=== PATIENT | female | born 1980 | race American Indian/Alaskan Native ===

== ENCOUNTER 2017-11-01 12:51 | Emergency (ER) | payer MEDICAID ==
--- NOTE | 2017-11-01 15:10 | Emergency Department Report ---
ED Lower Extremity HPI - General Chief Complaint: Extremity Injury, Lower Stated Complaint: RIGHT LEG SWOLLEN Time Seen by Provider: 11/01/17 15:10 Source: patient Mode of arrival: Ambulatory Limitations: No Limitations - History of Present Illness Initial Comments: This is a 37-year-old female nontoxic, well nourished in appearance, no acute signs of distress presents to the ED with c/o of right knee pain and swelling 1 day. Patient stated that she also feels a knot behind her knee. Patient stated she has been walking a lot. Patient stated she feels like her knee locks up on her at times. Patient denies any decreased range of motion or joint redness. Patient denies any decreased ROM. Patient denies any calf pain or tenderness. Patient denies any recent travels, long car rides, or recent hospital. Patient denies any numbness, tingling, chest pain, shortness of breathe, abdominal pain, back pain, or neck pain. Patient denies any allergies or PMH. MD Complaint: knee injury -: days(s) (1) Injury: Knee: Right Severity: mild Severity scale (0 -10): 8 Improves With: nothing Worsens With: nothing Associated Symptoms: swelling, able to partially bear weight, ambulatory. denies: snap/pop sensation, numbness, tingling, unable to bear weight - Related Data Previous Rx's Medication Instructions Recorded Last Taken Type Ibuprofen [Motrin] 600 mg PO Q8H PRN #30 tablet 11/01/17 Unknown Rx Prednisone [predniSONE 10 mg 10 mg PO .TAPER #1 tab.ds.pk 11/01/17 Unknown Rx (6-Day Pack, 21 Tabs)] Allergies Allergy/AdvReac Type Severity Reaction Status Date / Time No Known Allergies Allergy Unverified 11/01/17 14:13 ED Review of Systems ROS: Stated complaint: RIGHT LEG SWOLLEN Other details as noted in HPI Constitutional: denies: chills, fever Eyes: denies: eye pain, eye discharge, vision change ENT: denies: ear pain, throat pain Respiratory: denies: cough, shortness of breath, wheezing Cardiovascular: denies: chest pain, palpitations Endocrine: no symptoms reported Gastrointestinal: denies: abdominal pain, nausea, diarrhea Genitourinary: denies: urgency, dysuria, discharge Musculoskeletal: arthralgia. denies: back pain, joint swelling Skin: denies: rash, lesions Neurological: denies: headache, weakness, paresthesias Psychiatric: denies: anxiety, depression Hematological/Lymphatic: denies: easy bleeding, easy bruising ED Past Medical Hx - Past Medical History Previous Medical History?: No - Surgical History Past Surgical History?: No - Social History Smoking Status: Never Smoker - Medications Home Medications: Home Medications Medication Instructions Recorded Confirmed Last Taken Type Ibuprofen [Motrin] 600 mg PO Q8H PRN #30 tablet 11/01/17 Unknown Rx Prednisone [predniSONE 10 mg 10 mg PO .TAPER #1 tab.ds.pk 11/01/17 Unknown Rx (6-Day Pack, 21 Tabs)] ED Physical Exam - General Limitations: No Limitations General appearance: alert, in no apparent distress - Head Head exam: Present: atraumatic, normocephalic - Eye Eye exam: Present: normal appearance Pupils: Present: normal accommodation - ENT ENT exam: Present: normal exam, mucous membranes moist - Neck Neck exam: Present: normal inspection, full ROM. Absent: tenderness, meningismus - Respiratory Respiratory exam: Present: normal lung sounds bilaterally. Absent: respiratory distress, wheezes, rales, rhonchi, stridor - Cardiovascular Cardiovascular Exam: Present: regular rate, normal rhythm, normal heart sounds. Absent: bradycardia, tachycardia, irregular rhythm, systolic murmur, diastolic murmur, rubs, gallop - GI/Abdominal GI/Abdominal exam: Present: soft, normal bowel sounds - Rectal Rectal exam: Present: deferred - Extremities Exam Extremities exam: Present: normal inspection, full ROM, tenderness (anterior knee), normal capillary refill. Absent: pedal edema, joint swelling, calf tenderness - Expanded Lower Extremity Exam Right Hip exam: Present: normal inspection, full ROM Upper Leg exam: Present: normal inspection, full ROM Knee exam: Present: normal inspection, full ROM, tenderness (anterior and posterior knee), full knee extension. Absent: swelling, abrasion, laceration, ecchymosis, deformity, crepidus, dislocation, erythema, effusion, pain w/ pronation/supination, posterior draw sign, pain/laxity with valgus, pain/laxity with varus Lower Leg exam: Present: normal inspection, full ROM. Absent: tenderness, swelling, abrasion, laceration, ecchymosis, deformity, crepidus, dislocation, erythema, palpable cord, Joby's sign Ankle exam: Present: normal inspection, full ROM. Absent: tenderness, swelling , abrasion, laceration, ecchymosis, deformity, crepidus, dislocation, erythema, anterior draw sign Foot/Toe exam: Present: normal inspection, full ROM Neuro vascular tendon exam: Present: no vascular compromise. Absent: pulse deficit, abnormal cap refill, motor deficit, sensory deficit, tendon deficit, extremity cold to touch, pallor, abnormal 2-point discrimination, decreased fine /light touch, foot drop, peroneal nerve deficit, significant pain with passive ROM of distal joint Gait: Positive: observed and limited by pain - Back Exam Back exam: Present: normal inspection, full ROM - Neurological Exam Neurological exam: Present: alert, oriented X3, normal gait - Psychiatric Psychiatric exam: Present: normal affect, normal mood - Skin Skin exam: Present: warm, dry, intact, normal color. Absent: rash - Other Other exam information: Knee is not warm to touch. Normal temp and no redness. ED Course Vital Signs 11/01/17 14:11 Temperature 98.7 F Pulse Rate 72 Respiratory 16 Rate Blood Pressure 140/95 O2 Sat by Pulse 100 Oximetry - Reevaluation(s) Reevaluation #1: 11/01/17 16:20 Patient is speaking in full sentences with no signs of distress noted. ED Lower Extremity MDM - Medical Decision Making This is a 37-year-old female that presents with right knee strain. Patient is stable and was examined by me. Doppler venous of right lower extermity obtained and negative for DVT/SVT. Xray obtained and dictated by the radiologist. Patient is notified of the x-ray report with no questions noted. Patient did receive Motrin in the ED and stated symptoms have resolved and subsided. There is no signs or symptoms of bursitis. No joint swelling or redness. Not warm to touch. No signs of abscess or cellultitis noted. Patient is discharged with Motrin. She was instructed to rice therapy. Patient received a knee immobilizer. Patient was referred to Follow-up with a orthopedic doctor in 3-5 days or if symptoms worsen and continue return to emergency room as soon as possible. At time of discharge, the patient does not seem toxic or ill in appearance. No acute signs of distress noted. Patient agrees to discharge treatment plan of care. No further questions noted by the patient. Critical care attestation.: If time is entered above; I have spent that time in minutes in the direct care of this critically ill patient, excluding procedure time. ED Disposition Clinical Impression: Strain of right knee Qualifiers: Encounter type: initial encounter Qualified Code(s): S86.911A - Strain of unspecified muscle(s) and tendon(s) at lower leg level, right leg, initial encounter Disposition: TO HOME OR SELFCARE Is pt being admited?: No Does the pt Need Aspirin: No Condition: Stable Instructions: Ibuprofen (By mouth), Knee Pain (ED), RICE Therapy (ED), Knee Immobilizer (ED) Additional Instructions: Follow-up with a orthopedic doctor in 3-5 days or if symptoms worsen and continue return to emergency room as soon as possible. Prescriptions: Ibuprofen [Motrin] 600 mg PO Q8H PRN #30 tablet PRN Reason: Pain Prednisone [predniSONE 10 mg (6-Day Pack, 21 Tabs)] 10 mg PO .TAPER #1 tab.ds.pk Referrals: CIRILO OROZCO [Primary Care Provider] - 3-5 Days HARI SALAZAR MD [Staff Physician] - 3-5 Days PRIMARY CAREMD [Referring] - 3-5 Days [facility] [Outside] - 3-5 Days [facility] [Outside] - 3-5 Days Forms: Work/School Release Form(ED)
[2017-11-01] MEDS ORDERED: MOTRIN PO ONE (15:12)
--- NOTE | 2017-11-01 17:38 | XRay Report ---
FINAL REPORT EXAM: XR KNEE 3V RT HISTORY: right knee pain TECHNIQUE: 3 views of the right knee PRIORS: None. FINDINGS: Moderate nonspecific soft tissue prominence superior to the patella on the lateral view may reflect moderate knee joint effusion. There is no radiographic evidence of definite acute fracture or dislocation. No evidence of osseous lesion. Joint spaces are maintained. There is no evidence of significant degenerative arthrosis. IMPRESSION: No acute skeletal pathology Suggestion of moderate joint effusion
[2017-11-01 18:14] VITALS: BP 128/90
== END 2017-11-01 18:13 | disposition home or self-care (01) ==
LOC: ED 12:51
DX: S86.911A Strain of unspecified muscle(s) and tendon(s) at lower leg level, right leg, initial encounter (principal); X58.XXXA Exposure to other specified factors, initial encounter; Y93.89 Activity, other specified; Y92.89 Other specified places as the place of occurrence of the external cause; Y99.8 Other external cause status

== ENCOUNTER 2018-02-25 02:16 | Emergency (ER) | payer MEDICAID ==
[2018-02-25 05:24] LABS: Basophils # (Auto) 0.1 K/mm3 (0.0-0.1); Basophils % (Auto) 1.1 % (0.0-1.8); Eosinophils # (Auto) 0.3 K/mm3 (0.0-0.4); Eosinophils % (Auto) 3.7 % (0.0-4.3); Hematocrit 35.6 % (30.3-42.9); Hemoglobin 11.5 gm/dl (10.1-14.3); Lymphocytes # (Auto) 2.2 K/mm3 (1.2-5.4); Lymphocytes % (Auto) 31.3 % (13.4-35.0); Mean Corpuscular HGB Conc 32 % (30-34); Mean Corpuscular Hemoglobin 28 pg (28-32); Mean Corpuscular Volume 87 fl (79-97); Monocytes # (Auto) 0.6 K/mm3 (0.0-0.8); Platelet Count 141 K/mm3 (140-440); Red Blood Count 4.07 M/mm3 (3.65-5.03); Red Cell Distribution Width 19.1 % (13.2-15.2)
[2018-02-25 05:35] LABS: BUN/Creatinine Ratio 14; Blood Urea Nitrogen 7 mg/dL (7-17); Hemolysis Index 1; INR 0.91 (0.87-1.13)
[2018-02-25 05:36] LABS: Partial Thromboplastin Time 28.6 Sec. (24.2-36.6)
[2018-02-25] MEDS ORDERED: TYLENOL PO ONE (06:33)
--- NOTE | 2018-02-25 06:34 | Emergency Department Report ---
ED General Adult HPI - General Chief complaint: Extremity Injury, Lower Stated complaint: LEFT LEG SWELLING AND PAIN. Time Seen by Provider: 02/25/18 06:23 Source: patient, RN notes reviewed Mode of arrival: Ambulatory Limitations: No Limitations - History of Present Illness Initial comments: This is a 37-year-old female who is unknown to this provider previously. She is 10, para 7, including twin gestation, last menstrual period is December 20 , and is currently following with [facility]. She is going to see Dr. Mcmillan tomorrow. She has an outpatient referral to perinatology. She denies chronic medical conditions. She presents to the ER with a complaint of traumatic left calf pain. She reports doing a lot of walking over the past couple of weeks. She reports being seen at another hospital for right sided plantar foot pain, was presumptively diagnosed with plantar fasciitis, and reports that she has been favoring the contralateral leg. Since then she's been having left calf pain and swelling. This is been going on for about 2 weeks. The pain is sharp, increases with palpation, does not radiate anywhere, increases with palpation and decreases with rest. There is no headache, neck pain, chest pain, abdominal pain, shortness of breath, and she denies urinary symptoms. She further indicates that a side effect from , she denies DVT, pulmonary embolus risk factors. She also indicates that she's had negative outpatient ultrasound at other facilities. -: Gradual Location: left, lower extremity Severity scale (0 -10): 10 Quality: aching Consistency: intermittent Improves with: rest Worsens with: movement Associated Symptoms: denies: confusion, chest pain, cough, diaphoresis, fever/ chills, headaches, loss of appetite, malaise, nausea/vomiting, rash, seizure, shortness of breath, syncope, weakness - Related Data Previous Rx's Medication Instructions Recorded Last Taken Type Ibuprofen [Motrin] 600 mg PO Q8H PRN #30 tablet 11/01/17 Unknown Rx Prednisone [predniSONE 10 mg 10 mg PO .TAPER #1 tab.ds.pk 11/01/17 Unknown Rx (6-Day Pack, 21 Tabs)] Acetaminophen [Tylenol Arthritis] 650 mg PO Q6HR PRN #30 tablet.er 02/25/18 Unknown Rx Enoxaparin [Lovenox] 120 mg SQ Q12HR #60 syringe 02/25/18 Unknown Rx Vit Calc,Iron,Folic 1 each PO QDAY #30 tablet 02/25/18 Unknown Rx [ Vitamins] Allergies Allergy/AdvReac Type Severity Reaction Status Date / Time No Known Allergies Allergy Unverified 11/01/17 14:13 ED Review of Systems ROS: Stated complaint: LEFT LEG SWELLING AND PAIN. Other details as noted in HPI Comment: All other systems reviewed and negative ED Past Medical Hx - Past Medical History Previous Medical History?: No Additional medical history: DVT L leg - Surgical History Past Surgical History?: Yes Additional Surgical History: X 2, Fractured right leg. - Social History Smoking Status: Current Every Day Smoker Substance Use Type: None - Medications Home Medications: Home Medications Medication Instructions Recorded Confirmed Last Taken Type Ibuprofen [Motrin] 600 mg PO Q8H PRN #30 tablet 11/01/17 Unknown Rx Prednisone [predniSONE 10 mg 10 mg PO .TAPER #1 tab.ds.pk 11/01/17 Unknown Rx (6-Day Pack, 21 Tabs)] Acetaminophen [Tylenol Arthritis] 650 mg PO Q6HR PRN #30 tablet.er 02/25/18 Unknown Rx Enoxaparin [Lovenox] 120 mg SQ Q12HR #60 syringe 02/25/18 Unknown Rx Vit Calc,Iron,Folic 1 each PO QDAY #30 tablet 02/25/18 Unknown Rx [ Vitamins] ED Physical Exam - General Limitations: No Limitations General appearance: alert, in no apparent distress, obese - Head Head exam: Present: atraumatic, normocephalic - Eye Eye exam: Present: normal appearance, EOMI. Absent: nystagmus - ENT ENT exam: Present: normal exam, normal orophraynx, mucous membranes moist, normal external ear exam - Neck Neck exam: Present: normal inspection, full ROM - Respiratory Respiratory exam: Present: normal lung sounds bilaterally. Absent: respiratory distress - Cardiovascular Cardiovascular Exam: Present: regular rate, normal rhythm, normal heart sounds. Absent: bradycardia, tachycardia, irregular rhythm, systolic murmur, diastolic murmur, rubs, gallop - GI/Abdominal GI/Abdominal exam: Present: soft. Absent: distended, tenderness, guarding, rebound, rigid, pulsatile mass - Extremities Exam Extremities exam: Present: normal inspection (there is right-sided reproducible plantar foot tenderness. There is left-sided reproducible calf Tenderness. There is no palpable cord. There is a negative Homans sign.), full ROM, tenderness, normal capillary refill, calf tenderness, other (2+ pulses noted in the bilateral upper, lower extremities. Compartments soft. No long bony tenderness. The pelvis is stable.) - Back Exam Back exam: Present: normal inspection, full ROM. Absent: tenderness, CVA tenderness (R), CVA tenderness (L), muscle spasm, paraspinal tenderness - Neurological Exam Neurological exam: Present: alert, oriented X3, CN II-XII intact, other ( Extraocular movements intact. Tongue midline. No facial droop. Facial sensation intact to light touch in the V1, V2, V3 distribution bilaterally. 5 and 5 strength in 4 extremities.. Sensation is intact to light touch in 4 extremities.). Absent: motor sensory deficit - Psychiatric Psychiatric exam: Present: normal affect, normal mood - Skin Skin exam: Present: warm, dry, intact, normal color. Absent: rash ED Course Vital Signs 02/25/18 02/25/18 02/25/18 04:51 06:08 07:24 Temperature 98.2 F 98.3 F Pulse Rate 93 H 76 Respiratory 16 16 16 Rate Blood Pressure 143/80 Blood Pressure 126/73 [Left] O2 Sat by Pulse 100 100 Oximetry 02/25/18 07:26 Temperature 98.3 F Pulse Rate 82 Respiratory 16 Rate Blood Pressure Blood Pressure 120/73 [Left] O2 Sat by Pulse 100 Oximetry - Reevaluation(s) Reevaluation #1: 02/25/18 08:09 Differential diagnosis, including but not limited to: DVT, muscular strain, plantar fasciitis Assessment and plan: 37-year-old female with reproducible muscular pain, unlikely to be DVT. My bedside ultrasound demonstrates appropriate pulses in the lower extremities, and pulses are also palpable on my physical examination. Compartments are soft, there is no palpable cord, there is no pain with passive range of motion of the great toes, and there is no obvious stigmata of cellulitis. During the lower extremity examination, I am chaperoned by nurse SEDA DSOUZA. Patient is treated appropriately with acetaminophen for her pain, an ultrasound of the lower extremities is pending to exclude thromboembolic disease. My bedside ultrasound also demonstrates an intrauterine , with spontaneous heart rate noted. 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 Reevaluation #2: 02/25/18 09:58 Ultrasound has demonstrated bilateral lower extremity DVT. Case is discussed with vascular surgery litigation manager, Dr. Tristan Jain. The physical exam findings and ultrasound findings are relayed to the vascular surgeon. He does not recommend any invasive intervention at this time. He recommends Lovenox therapy and outpatient follow-up next week. This is discussed with the patient. She endorses that she has self-administered Lovenox in the past. The risks, benefits of Lovenox therapy, including bleeding, and potential life- threatening hemorrhage were discussed with the patient who verbalized understanding. She indicates no contraindications to systemic anticoagulation at this time. ED Medical Decision Making - Lab Data Result diagrams: 02/25/18 05:05 02/25/18 05:05 Vital Signs 02/25/18 02/25/18 02/25/18 04:51 06:08 07:24 Temperature 98.2 F 98.3 F Pulse Rate 93 H 76 Respiratory 16 16 16 Rate Blood Pressure 143/80 Blood Pressure 126/73 [Left] O2 Sat by Pulse 100 100 Oximetry 02/25/18 07:26 Temperature 98.3 F Pulse Rate 82 Respiratory 16 Rate Blood Pressure Blood Pressure 120/73 [Left] O2 Sat by Pulse 100 Oximetry Lab Results 02/25/18 02/25/18 02/25/18 Range/Units 05:05 05:05 05:05 WBC 7.0 (4.5-11.0) K/mm3 RBC 4.07 (3.65-5.03) M/mm3 Hgb 11.5 (10.1-14.3) gm/dl Hct 35.6 (30.3-42.9) % MCV 87 (79-97) fl MCH 28 (28-32) pg MCHC 32 (30-34) % RDW 19.1 H (13.2-15.2) % Plt Count 141 (140-440) K/mm3 Lymph % (Auto) 31.3 (13.4-35.0) % [place] % (Auto) 9.0 H (0.0-7.3) % Eos % (Auto) 3.7 (0.0-4.3) % Baso % (Auto) 1.1 (0.0-1.8) % Lymph # 2.2 (1.2-5.4) K/mm3 [place] # 0.6 (0.0-0.8) K/mm3 Eos # 0.3 (0.0-0.4) K/mm3 Baso # 0.1 (0.0-0.1) K/mm3 Seg Neutrophils % 54.9 (40.0-70.0) % Seg Neutrophils # 3.9 (1.8-7.7) K/mm3 PT 12.7 (12.2-14.9) Sec. INR 0.91 (0.87-1.13) APTT 28.6 (24.2-36.6) Sec. Sodium 137 (137-145) mmol/L Potassium 4.1 (3.6-5.0) mmol/L Chloride 101.2 (98-107) mmol/L Carbon Dioxide 22 (22-30) mmol/L Anion Gap 18 mmol/L BUN 7 (7-17) mg/dL Creatinine 0.5 L (0.7-1.2) mg/dL Estimated GFR > 60 ml/min BUN/Creatinine Ratio 14 % Glucose 87 (65-100) mg/dL Calcium 10.0 (8.4-10.2) mg/dL Total Creatine Kinase (30-135) units/L HCG, Quant (0-4) mIU/mL 02/25/18 02/25/18 Range/Units 05:05 05:05 WBC (4.5-11.0) K/mm3 RBC (3.65-5.03) M/mm3 Hgb (10.1-14.3) gm/dl Hct (30.3-42.9) % MCV (79-97) fl MCH (28-32) pg MCHC (30-34) % RDW (13.2-15.2) % Plt Count (140-440) K/mm3 Lymph % (Auto) (13.4-35.0) % [place] % (Auto) (0.0-7.3) % Eos % (Auto) (0.0-4.3) % Baso % (Auto) (0.0-1.8) % Lymph # (1.2-5.4) K/mm3 [place] # (0.0-0.8) K/mm3 Eos # (0.0-0.4) K/mm3 Baso # (0.0-0.1) K/mm3 Seg Neutrophils % (40.0-70.0) % Seg Neutrophils # (1.8-7.7) K/mm3 PT (12.2-14.9) Sec. INR (0.87-1.13) APTT (24.2-36.6) Sec. Sodium (137-145) mmol/L Potassium (3.6-5.0) mmol/L Chloride (98-107) mmol/L Carbon Dioxide (22-30) mmol/L Anion Gap mmol/L BUN (7-17) mg/dL Creatinine (0.7-1.2) mg/dL Estimated GFR ml/min BUN/Creatinine Ratio % Glucose (65-100) mg/dL Calcium (8.4-10.2) mg/dL Total Creatine Kinase 119 (30-135) units/L HCG, Quant 89200 H (0-4) mIU/mL - Radiology Data Radiology results: report reviewed, image reviewed [facility] CASANDRA CHILDS Female : 1980 [employer]# [id number] 02/25/18 09:18 - Radiology Dept. Note by LISBET FOWLER [facility] Num: [id number] : 1980 Patient Age: 37 BLE VENOUS DUPLEX COMPLETED. VAS LAB PRELIMINARY REPORT; ACUTE DVT NOTED IN RLE DST SFV, POP V , PTV, PERONEAL V'S. ACUTE DVT NOTED ALSO IN LLE. SFV, POP V, PTV AND PERONEAL V'S. PHYSICIANS REPORT TO FOLLOW...(RSK) Initialized on 02/25/18 09:18 - END OF NOTE Critical care attestation.: If time is entered above; I have spent that time in minutes in the direct care of this critically ill patient, excluding procedure time. ED Disposition Clinical Impression: DVT (deep vein thrombosis) in Disposition: DC-01 TO HOME OR SELFCARE Is pt being admited?: No Does the pt Need Aspirin: No Condition: Stable Instructions: Deep Venous Thrombosis (ED) Additional Instructions: Take the acetaminophen as needed for pain. Take the Lovenox therapy as directed twice daily for blood clots in the lower extremities. Follow up as soon as possible with an [facility] doctor to initiate and continue outpatient care. Follow up with [facility], or any local vascular surgeon within the next 7-10 days. Return to the ER right away with new pain, worsened pain, migration of pain, vomiting blood, defecating blood, chest pain, shortness of breath, lightheadedness, loss of consciousness. Referrals: PRIMARY CARE, [Primary Care Provider] - 3-5 Days AMISHA MCMILLAN MD [Staff Physician] - 3-5 Days [facility] [Provider Group] - 3-5 Days [facility] [Provider Group] - 3-5 Days [facility] [Provider Group] - 3-5 Days
[2018-02-25] MEDS ORDERED: LOVENOX SUB-Q STA (09:45)
[2018-02-25 10:53] VITALS: BP 126/72
[2018-02-25] MEDS ORDERED: LOVENOX SUB-Q ONE (11:00)
--- NOTE | 2018-02-26 11:35 | Vascular Lab Report ---
LOWER EXTREMITY VENOUS DUPLEX: REASON FOR EXAM: Pain and swelling of the lower extremities. COMMENTS ON THE RIGHT: Acute, partially occluding thrombus is seen in the distal superficial femoral vein, popliteal vein, and the posterior tibial and peroneal veins. The remaining veins visualized are freely compressible without evidence of internal echogenicity. Spontaneous and phasic flow is present proximally. COMMENTS ON THE LEFT: Acute occlusive deep venous thrombosis is seen involving the entire superficial femoral vein, popliteal vein, and proximal posterior tibial and peroneal veins. The remaining veins visualized are freely compressible without evidence of internal echogenicity. Spontaneous and phasic flow is diminished proximally. IMPRESSION: Extensive acute deep venous thrombosis in the left lower extremity. Partially occluding acute thrombus in the distal superficial femoral, popliteal and proximal tibial veins of the right lower extremity.
== END 2018-02-25 10:53 | disposition home or self-care (01) ==
LOC: ED 02:16
DX: O22.31 Deep phlebothrombosis in pregnancy, first trimester (principal); O99.331 Smoking (tobacco) complicating pregnancy, first trimester; F17.200 Nicotine dependence, unspecified, uncomplicated; Z3A.10 10 weeks gestation of pregnancy
CPT/HCPCS: 36415; 80048; 82550; 84702; 85025; 85610; 85730; 93970; 96372; 99284; J1650

== ENCOUNTER 2018-08-28 09:54 | Inpatient (IN) | payer MEDICAID ==
[2018-08-28] MEDS ORDERED: LACTATED RINGERS 2,000 ML ONE (10:45)
[2018-08-28] MEDS ORDERED: ANCEF/STERILE WATER 2 GM/20 ML 2 GM/20 ML SYRINGE IV NR (11:00)
[2018-08-28] MEDS ORDERED: PITOCin/NS 20 UNIT/1000ML DRIP 20 UNITS/1,000 ML BAG IV SCH ×2 (11:00→14:00)
--- NOTE | 2018-08-28 11:03 | History and Physical Report ---
History of Present Illness Date of examination: 08/28/18 Date of admission: 08/28/18 10:13 Chief complaint: SIUP at 35 weeks and 6 days gestation in active labor and SROM, breech presentation, previous C/section. History of present illness: Patient is a 38 year old , LMP 12/20/17, EDC 09/26/18 at 35 weeks and 6 days gestation who presented to triage complaining of fluid leakage per vagina which started an hour ago and irregular contractions. She denies any bleeding. She reports good movement. She is a grand multiparous with a history of 3 placental abruptions, first was a C/section for IUFD at 41 weeks, 7 VBACs, one repeat C/section, then one with another IUFD. GCT was elevated but she refused 3-hr GTT She has a history of left leg DVT and has been on lovenox, dose unknown as per patient, "I just get the seringe and inject myself every night with whatever dose of lovenox that is there". She smokes cigarette and marijuana dailly. 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 History: herpes Family/Genetic History: none Social history: smoking, other (marijuana) - Obstetrical History Expected Date of Delivery: 09/26/18 Actual Gestation: 35 Week(s) 6 Day(s) : 14 Para: 8 Hx # Term Pregnancies: 3 Number of Pregnancies: 6 Spontaneous Abortions: 3 Number of Living Children: 7 Medications and Allergies Allergies Allergy/AdvReac Type Severity Reaction Status Date / Time Latex, Natural Rubber Allergy Itching Verified 08/28/18 10:32 Home Medications Medication Instructions Recorded Confirmed Last Taken Type Ibuprofen [Motrin] 600 mg PO Q8H PRN #30 tablet 11/01/17 Unknown Rx Prednisone [predniSONE 10 mg 10 mg PO .TAPER #1 tab.ds.pk 11/01/17 Unknown Rx (6-Day Pack, 21 Tabs)] Acetaminophen [Tylenol Arthritis] 650 mg PO Q6HR PRN #30 tablet.er 02/25/18 Unknown Rx Enoxaparin [Lovenox] 120 mg SQ Q12HR #60 syringe 02/25/18 Unknown Rx Vit Calc,Iron,Folic 1 each PO QDAY #30 tablet 08/06/18 Unknown Rx [ Vitamins] Active Meds: Active Medications Citric Acid/Sodium Citrate (Bicitra) 30 ml PO ONCE ONE Stop: 08/28/18 10:47 Famotidine (Pepcid) 20 mg IV ONCE ONE Stop: 08/28/18 10:47 Cefazolin Sodium (Ancef/Sterile Water 2 Gm/20 Ml) 2 gm in 20 mls @ 80 mls/hr IV PREOP NR; Protocol Lactated Ringer's (Lactated Ringers) 1,000 mls @ 2,250 mls/hr IV PREOP DEEPIKA Stop: 08/29/18 11:27 Oxytocin/Sodium Chloride (Pitocin/Ns 20 Unit/1000ml Drip) 20 units in 1,000 mls @ 0 mls/hr IV TITR DEEPIKA Metoclopramide HCl (Reglan) 10 mg IV ONCE ONE Stop: 08/28/18 10:47 - Physical Exam Cardiovascular: Normal S1, Normal S2 Lungs: Positive: Clear to auscultation Vulva: both: normal Adnexa: both: normal Deep Tendon Reflex Grade: Normal +2 - Obstetrical FHR: category 1 Uterine Contraction Monitor Mode: External Cervical Dilatation: 3 Cervical Effacement Percentage: 70 station: -2 Uterine Contraction Pattern: Irregular Uterine Contraction Intensity: Moderate Results Result Diagrams: 08/28/18 10:42 All other labs normal. Assessment and Plan - Patient Problems (1) 35 weeks gestation of Current Visit: Yes Status: Acute (2) Breech presentation Current Visit: Yes Status: Acute Plan to address problem: Admit to labor floor. Patient was counselled for repeat C/section. Risks, benefits, and alternatives of the procedure were discussed in detail with the patient which included but not limited to the risk of infection, hemorrhage requiring blood transfusion, injury to the bowel or bladder and blood vessels. The patient expressed understanding, her questions were answered, and she gave informed consent. Keep NPO. Routine admitting labs. IV hydration. Anesthesia aware. Patient did sign tubal ligation papers, but she says that she does not want her tubes tied today. (3) labor Current Visit: Yes Status: Acute (4) Previous section Current Visit: Yes Status: Acute Plan to address problem: For repeat C/section. (5) DVT (deep venous thrombosis) Current Visit: Yes Status: Acute Plan to address problem: Last lovenox was 12 hours ago. (6) Rubella non-immune status, antepartum Current Visit: Yes Status: Acute Plan to address problem: For MMR after delivery. (7) Advanced maternal age (AMA) in Current Visit: Yes Status: Acute
[2018-08-28] MEDS ORDERED: PHENERGAN PO PRN (11:04)
[2018-08-28] MEDS ORDERED: ZOFRAN IV PRN ×2 (11:04→13:22)
[2018-08-28] MEDS ORDERED: PHENERGAN PR PRN (11:04)
[2018-08-28 11:13] LABS: Basophils # (Auto) 0.1 K/mm3 (0.0-0.1); Basophils % (Auto) 0.8 % (0.0-1.8); Eosinophils # (Auto) 0.1 K/mm3 (0.0-0.4); Eosinophils % (Auto) 0.9 % (0.0-4.3); Hematocrit 28.4 % (30.3-42.9); Hemoglobin 8.9 gm/dl (10.1-14.3); Lymphocytes # (Auto) 1.8 K/mm3 (1.2-5.4); Lymphocytes % (Auto) 29.4 % (13.4-35.0); Mean Corpuscular HGB Conc 31 % (30-34); Mean Corpuscular Volume 78 fl (79-97); Monocytes # (Auto) 0.6 K/mm3 (0.0-0.8); Monocytes % (Auto) 9.7 % (0.0-7.3); Platelet Count 203 K/mm3 (140-440); Red Blood Count 3.65 M/mm3 (3.65-5.03)
[2018-08-28] MEDS ORDERED: ZEMURON IV ONE (11:16)
[2018-08-28] MEDS ORDERED: XYLOCAINE MPF 2% ONE (11:16)
[2018-08-28] MEDS ORDERED: QUELICIN ONE (11:16)
[2018-08-28] MEDS ORDERED: SUBLIMAZE ONE ×2 (11:16→13:07)
[2018-08-28] MEDS ORDERED: DIPRIVAN 10 MG/ML IV ONE (11:18)
[2018-08-28] MEDS ORDERED: KETALAR ONE (11:18)
[2018-08-28 11:20] LABS: Red Cell Distribution Width 20.3 % (13.2-15.2)
[2018-08-28] MEDS ORDERED: PEPCID IV ONE (11:30)
[2018-08-28] MEDS ORDERED: NARCAN 0.4 MG/1 ML IV PRN ×2 (11:30→13:22)
[2018-08-28] MEDS ORDERED: BICITRA PO ONE (11:30)
[2018-08-28] MEDS ORDERED: LACTATED RINGERS 1,000 ML IV SCH (11:30)
[2018-08-28] MEDS ORDERED: REGLAN IV ONE (11:30)
[2018-08-28] MEDS ORDERED: SODIUM CHLORIDE FLUSH SYRINGE 10 ML IV NR ×2 (12:00→14:00)
[2018-08-28] MEDS ORDERED: METHERGINE ONE (12:25)
[2018-08-28] MEDS ORDERED: METHERGINE IM ONE ×2 (12:25→12:36)
[2018-08-28] MEDS ORDERED: HEMABATE IM ONE (12:35)
[2018-08-28] MEDS ORDERED: ZOFRAN ONE (12:36)
[2018-08-28] MEDS ORDERED: VERSED ONE (12:38)
[2018-08-28] MEDS ORDERED: TORADOL IV PRN (13:22)
[2018-08-28] MEDS ORDERED: TYLENOL PO PRN (13:22)
[2018-08-28] MEDS ORDERED: TUCKS PAD TP PRN (13:22)
[2018-08-28] MEDS ORDERED: MYLICON PO PRN (13:22)
[2018-08-28] MEDS ORDERED: BLOXIVERZ ONE (13:22)
[2018-08-28] MEDS ORDERED: ANUCORT-HC PR PRN (13:22)
[2018-08-28] MEDS ORDERED: MILK OF MAGNESIA PO PRN (13:22)
[2018-08-28] MEDS ORDERED: ROBINUL ONE (13:22)
[2018-08-28] MEDS ORDERED: SENOKOT PO PRN (13:22)
[2018-08-28] MEDS ORDERED: LANSINOH TP PRN (13:22)
[2018-08-28] MEDS ORDERED: MORPHINE IV PRN ×2 (13:22)
--- NOTE | 2018-08-28 14:05 | Operative Report ---
Operative Report Operative Report: Preoperative diagnosis 1. SIUP at 35 weeks and 6 days gestation in active labor. 2. Breech presentation. 3. Previous C/section. 4. Gestational diabetes. 5. History of DVT on lovenox. 6. Morbid obesity. 7. Advanced maternal age. Postoperative diagnosis: 1. SIUP at 35 weeks and 6 days gestation in active labor. 2. Breech presentation. 3. Previous C/section. 4. Gestational diabetes. 5. History of DVT on lovenox. 6. Morbid obesity. 7. macrosomia. 8. Advanced maternal age. Procedure: Repeat low-transverse section. Surgeon: Dr. Ewing Cooking Chef: none Anesthesia: General. IVF: RL 1800 cc EBL: 800 cc Urine: 200 cc clear Complications: 1. Intraoperative uterine atony responsive to IV Pitocin, IM methergine and IM Hemabate. Intraoperative findings: 1. A male infant found in an transverse LOT position, delivered at 12:20 PM, Apgars 7 at 1 minute and 8 at 5 minutes, weight 9 lbs. 5 oz. 2. Normal fallopian tubes and ovaries bilaterally. Procedure details: Risks, benefits, and alternatives of the procedure were discussed in detail with the patient which included but not limited to the risk of infection, hemorrhage requiring blood transfusion, injury to the bowel or bladder and blood vessels. The patient expressed understanding, her questions were answered, and she gave informed consent. The patient was taken to the operating room with an IV fluid infusing Ringers lactate. In the operating room, she was placed in a dorsal supine position with a leftward tilt. Pedroza catheter in Venodyne boots were placed. The abdomen was washed and she was prepared and draped in usual sterile fashion. General anesthesia was administered. A Pfannenstiel skin incision was made in the lower abdomen about 2 cm above the pubic symphysis using the scalpel. This incision was carried down to the underlying fascia using the Bovie. The fascia was opened bilaterally in a curvilinear fashion using the Bovie. 2 straight Kocker clamps were used to grasp the upper edge of the fascia from which the underlying rectus abdominis muscles was dissected off using the Bovie. A similar procedure was done with the lower edge of the fascia to dissect the underlying rectus abdominis muscle. The muscle was bluntly from the midline by pulling. The parietal peritoneum was grasped with 2 hemostat clamps and entered sharply using Metzenbaum scissors. A quick survey of the anatomy revealed a gravid uterus, normal fallopian tubes and ovaries bilaterally. A bladder flap was created. Last'O retractor was placed in the incision for proper visualization. A low transverse incision was made in the lower uterine segment using the scalpel and extended bilaterally in a curvilinear fashion using bandage scissors. There was copious amount of clear amniotic fluids. The infant was found in a transverse LOT position. The head was brought to the incision and delivered atraumatically followed by the delivery of the shoulders and the rest of the body at 12:20 PM. The cord was clamped 2 and cut and the was handed off to the waiting performance improvement manager. The was a male, Apgars were 7 at 1 minute and 8 at 5 minutes, weight was 9 pounds and 5 ounces. Cord blood was collected. The placenta was delivered manually and it was complete with a three-vessel cord. The uterine cavity was cleaned of clots and debris using dry lap sponges. The uterine incision was repaired in a running locked fashion using 0 Vicryl sutures. A second layer of imbrication was placed. There was uterine atony. IV pitocin, IM methergine followed by IM hemabate were given with good response. The gutters were cleaned of clots and debris using dry lap sponges. After confirming adequate hemostasis, the instruments were removed from the abdominal cavity. The rectus muscle was reapproximated in an interrupted fashion using 0 Vicryl sutures. The fascia was closed in a running fashion using 0 Vicryl sutures. The skin was closed with miranda. Sterile dressing was placed. The counts of laps, needles, sponges, and instruments were correct 2. The patient tolerated the procedure well, she was taken to the recovery room in a stable condition.
[2018-08-28] MEDS: TORADOL IV PRN ×2 (14:19→21:18)
[2018-08-28 19:06] LABS: Amphetamine Screen,Urine PRESUMPTIVE NEGATIVE; Cocaine Screen,Urine PRESUMPTIVE NEGATIVE; Methadone Screen,Urine PRESUMPTIVE NEGATIVE
[2018-08-28 19:22] LABS: Benzodiazepines Screen,Urine PRESUMPTIVE POSITIVE; Cannabinoid Screen,Urine PRESUMPTIVE POSITIVE; Opiate Screen,Urine PRESUMPTIVE POSITIVE
[2018-08-29 01:13] LABS: Hematocrit 24.8 % (30.3-42.9); Hemoglobin 7.8 gm/dl (10.1-14.3)
[2018-08-29] MEDS: TORADOL IV PRN ×3 (03:09→17:19)
[2018-08-29] MEDS: FEOSOL PO SCH (09:36)
[2018-08-29] MEDS: PRENATAL VITAMIN PO SCH (09:36)
[2018-08-29] MEDS ORDERED: M-M-R II VACCINE SUB-Q ONE (13:24)
[2018-08-29] MEDS: NORCO 5/325 PO PRN (23:23)
[2018-08-30] MEDS: NORCO 5/325 PO PRN ×4 (06:40→22:59)
[2018-08-30] MEDS: PRENATAL VITAMIN PO SCH (11:17)
[2018-08-30] MEDS: FEOSOL PO SCH (11:17)
[2018-08-30] MEDS: IBUPROFEN PO PRN ×2 (11:19→17:29)
--- NOTE | 2018-08-30 19:52 | Event Note ---
chart reviewed. Recommendation to restart Lovenox for 6 weeks acknowledged and prescription ordered. All NSAID orders stopped. H/H 02/12. Platelets normal.
--- NOTE | 2018-08-30 20:52 | Progress Note ---
Assessment and Plan A: /postop day 2 S/P repeat low transverse section. History of DVT: Lovenox to be restarted this evening. Gestational diabetes. Anemia due to and acute blood loss. P: Restart Lovenox. Iron supplementation. Continue ambulation. Subjective - Subjective Date of service: 08/30/18 Principal diagnosis: /postop day 2 S/P repeat low transverse section Interval history: /postop day 2 S/P repeat low transverse section. Doing well. Ambulating without difficulty and voiding without difficulty. Passing gas. Tolerating a regular diet. Patient denies headache, chest pain, cough, shortness of breath, leg pain, abdominal pain, or heavy vaginal bleeding. Patient to start Lovenox this evening at 22:00. Dr. Daigle has already put in orders for this and has stopped Motrin. Patient reports: appetite normal, voiding normally, pain well controlled, flatus, ambulating normally, no dizzy ambulation, no nauseated [place]: doing well Objective - Vital Signs Latest vital signs: Vital Signs Temp Pulse Resp BP BP 08/30/18 15:50 98.1 F 94 H 20 144/77 08/30/18 08:55 97.6 F 96 H 18 132/77 08/30/18 00:00 98.7 F 74 18 121/82 Intake and Output 08/30/18 08/30/18 08/30/18 07:59 15:59 23:59 Intake Total 1040 Balance 1040 Intake: Oral 760 Intake, Free Water 280 Other: Total, Intake Amount 380 # Voids Void 1 1 - Exam Cardiovascular: Present: Regular rate, Normal S1, Normal S2 Lungs: Present: Clear to auscultation Abdomen: Present: normal appearance, soft. Absent: distention, tenderness, guarding, rigidity Uterus: Present: normal, firm, fundal height below umbilicus. Absent: bogginess, tenderness Extremities: Present: normal, edema (mild edema bilaterally). Absent: tenderness Incision: Present: normal, dry, intact
[2018-08-30] MEDS: LOVENOX SUB-Q SCH (22:51)
[2018-08-31] MEDS: NORCO 5/325 PO PRN ×3 (06:23→21:06)
--- NOTE | 2018-08-31 09:30 | Progress Note ---
Assessment and Plan A: /postop day 3 S/P repeat low transverse section. Severe anemia related to and acute blood loss. History of DVT, on Lovenox, and with no signs of DVT. Gestational diabetes. Class 3 obesity. Plan: Continue iron supplementation. Repeat H&H. Continue Lovenox. Encouraged ambulation. Anticipate discharge tomorrow if H&H stable. Subjective - Subjective Date of service: 08/31/18 Principal diagnosis: /postop day 3 S/P repeat low transverse section Interval history: /postop day 3 S/P repeat low transverse section. Doing well. Ambulating without difficulty and voiding without difficulty. Passing gas. Tolerating a regular diet without nausea or vomiting. Patient denies headache, chest pain, cough, shortness of breath, dizziness, leg pain, abdominal pain, or heavy vaginal bleeding. Patient restarted Lovenox last night. Patient reports: appetite normal, voiding normally, pain well controlled, flatus, ambulating normally, no dizzy ambulation, no nauseated [place]: doing well, in NICU Objective - Vital Signs Latest vital signs: Vital Signs Temp Pulse Resp BP Pulse Ox 08/31/18 07:47 98.9 F 111 H 20 125/72 99 08/30/18 23:50 98.6 F 18 132/75 08/30/18 15:50 98.1 F 94 H 20 144/77 Intake and Output 08/30/18 08/31/18 08/31/18 23:59 07:59 15:59 Intake Total 240 Balance 240 Intake: Oral 240 Other: Total, Intake Amount 240 # Voids Void 1 1 # Bowel Movements 1 - Exam Cardiovascular: Present: Regular rate, Normal S1, Normal S2 Lungs: Present: Clear to auscultation Abdomen: Present: normal appearance, soft, normal bowel sounds. Absent: distention, tenderness, guarding, rigidity Uterus: Present: normal, firm, fundal height below umbilicus. Absent: bogginess, tenderness Extremities: Present: normal, edema (moderate edema of ankles and feet bilaterally). Absent: tenderness Incision: Present: normal, dry, intact
[2018-08-31] MEDS: FEOSOL PO SCH (10:28)
[2018-08-31 13:27] LABS: Hematocrit 24.1 % (30.3-42.9); Hemoglobin 7.8 gm/dl (10.1-14.3)
[2018-08-31] MEDS: LOVENOX SUB-Q SCH (21:07)
[2018-09-01] MEDS: NORCO 5/325 PO PRN ×2 (03:46→12:58)
[2018-09-01 08:11] VITALS: BP 126/68
[2018-09-01] MEDS: FEOSOL PO SCH (12:58)
[2018-09-01] MEDS: PRENATAL VITAMIN PO SCH (13:00)
--- NOTE | 2018-09-11 12:51 | Discharge Summary ---
Providers - Providers Date of Admission: 08/28/18 10:13 Attending physician: MARIE LOPES MD 08/29/18 05:57 Consult to Case Management [CONS] Routine Services Needed at Discharge: [employer]eral [employer] Licensee Notified:: [id number] Additional Physician Instructions: pt positive for THC, opiates and benzo Primary care physician: MARIE LOPES MD Hospitalization Condition: Stable Procedures: Operative Report: Preoperative diagnosis 1. SIUP at 35 weeks and 6 days gestation in active labor. 2. Breech presentation. 3. Previous C/section. 4. Gestational diabetes. 5. History of DVT on lovenox. 6. Morbid obesity. 7. Advanced maternal age. Postoperative diagnosis: 1. SIUP at 35 weeks and 6 days gestation in active labor. 2. Breech presentation. 3. Previous C/section. 4. Gestational diabetes. 5. History of DVT on lovenox. 6. Morbid obesity. 7. macrosomia. 8. Advanced maternal age. Procedure: Repeat low-transverse section. Hospital course: /postop day 3 S/P repeat low transverse section. Severe anemia related to and acute blood loss. History of DVT, on Lovenox, and with no signs of DVT. Gestational diabetes. Class 3 obesity. Plan: Continue iron supplementation. Repeat H&H. Continue Lovenox. Encouraged ambulation. Disposition: TO HOME OR SELFCARE - Discharge Diagnoses (1) Chronic anemia Status: Acute (2) Anemia associated with acute blood loss Status: Acute (3) Advanced maternal age (AMA) in Status: Acute (4) DVT (deep venous thrombosis) Status: Acute (5) Previous section Status: Acute Core Measure Documentation - Palliative Care Palliative Care/ Comfort Measures: Not Applicable - Core Measures Any of the following diagnoses?: history only (Continue Lovenox. F/U outpatient 1 week. ) Exam - Constitutional Vitals: Temp Pulse Resp BP Pulse Ox 97.7 F 99 H 18 126/68 97 09/01/18 08:10 09/01/18 08:10 09/01/18 08:10 09/01/18 08:10 09/01/18 08:10 Plan Diet: regular Follow up with: MARIE LOPES MD [Primary Care Provider] - 7 Days Prescriptions: Enoxaparin [Lovenox] 40 mg SQ QDAY 42 Days #1 syringe Ibuprofen [Motrin] 800 mg PO Q8HR PRN #30 tablet PRN Reason: Pain, Moderate (4-6) oxyCODONE /ACETAMINOPHEN [Percocet 5/325] 1 tab PO Q4HR #14 tab
== END 2018-09-01 13:35 | disposition home or self-care (01) | DRG 765 ==
LOC: TRG 09:54 → LD 10:13 → APU 10:14 → OB 15:25
PROVIDERS: ADMIT Obstetrics & Gynecology; ATTEND Obstetrics & Gynecology
PROC: 10D00Z1 Extraction of Products of Conception, Low, Open Approach (ICD-10-PCS; principal; 2018-08-28)
DX: O34.211 Maternal care for low transverse scar from previous cesarean delivery (principal); O60.14X0 Preterm labor third trimester with preterm delivery third trimester, not applicable or unspecified; O32.1XX0 Maternal care for breech presentation, not applicable or unspecified; O24.429 Gestational diabetes mellitus in childbirth, unspecified control; O36.63X0 Maternal care for excessive fetal growth, third trimester, not applicable or unspecified; E66.01 Morbid (severe) obesity due to excess calories; O99.334 Smoking (tobacco) complicating childbirth; F17.210 Nicotine dependence, cigarettes, uncomplicated; O99.214 Obesity complicating childbirth; O62.2 Other uterine inertia; Z3A.35 35 weeks gestation of pregnancy; Z37.0 Single live birth; O99.02 Anemia complicating childbirth; D62 Acute posthemorrhagic anemia
CPT/HCPCS: 36415; 80307; 85014; 85018; 85025; 86592; 86850; 86900; 86901; 88307; G0378; J0330; J0690; J1650; J1885; J2210; J2250; J2270; J2405; J2590; J2704; J2710; J2765; J3010; J7120

== ENCOUNTER 2022-01-10 06:26 | Day surgery (SDC) | payer MEDICAID ==
[~2022-01-10 06:26] MED LIST: LACTATED RINGERS 1,000 ML IV SCH; MIDAZOLAM 2 MG/2 ML INJ IV NR
[2022-01-10] MEDS ORDERED: SILVER NITRATE APPLICATOR 1 EA TP ONE ×2 (07:09→11:05)
[2022-01-10] MEDS ORDERED: HYDROmorphone 1 MG/1 ML INJ ONE (07:23)
[2022-01-10] MEDS ORDERED: LIDOCAINE MPF (2%) 20 MG/1 ML VIAL 5 ML ONE (07:23)
[2022-01-10] MEDS ORDERED: propofoL 200 MG/20 ML VIAL IV ONE (07:23)
--- NOTE | 2022-01-10 07:34 | Anesthesia Day of Surgery ---
Anesthesia Day of Surgery - Day of Surgery Patient Examined: Yes Patient H&P Reviewed: Yes Patient is NPO: Yes
--- NOTE | 2022-01-10 07:34 | Anesthesia Consultation ---
Anesthesia Consult and Med Hx Date of service: 01/10/22 - Airway Anesthetic Teeth Evaluation: Good ROM Head & Neck: Adequate Mental/Hyoid Distance: Adequate Mallampati Class: Class I Intubation Access Assessment: Good - Pre-Operative Health Status ASA Pre-Surgery Classification: ASA2 Proposed Anesthetic Plan: General - Pulmonary Hx Smoking: Yes (4 black n/ milds per day) Hx Respiratory Symptoms: No - Cardiovascular System Hx Hypertension: No - Central Nervous System CVA: No - Endocrine Hx Renal Disease: No Hx Liver Disease: No Hx Insulin Dependent Diabetes: No Hx Non-Insulin Dependent Diabetes: No Hx Thyroid Disease: No - Additional Comments Anesthesia Medical History Comments: No hx anesthetic complications.
[2022-01-10] MEDS ORDERED: HYDROcodone/ACETAMINOPHEN 5-325 MG TAB PO PRN (08:00)
[2022-01-10] MEDS ORDERED: HYDROmorphone 0.5 MG/0.5 ML INJ IV PRN (08:30)
[2022-01-10] MEDS ORDERED: ONDANSETRON 4 MG/2 ML INJ IV PRN (08:30)
[2022-01-10] MEDS ORDERED: dexAMETHasone 20 MG/5 ML VIAL ONE (10:36)
[2022-01-10] MEDS ORDERED: ceFAZolin 1 GM VIAL ONE (10:42)
[2022-01-10] MEDS ORDERED: ONDANSETRON 4 MG/2 ML INJ ONE (10:56)
[2022-01-10] MEDS ORDERED: KETOROLAC 30 MG/1 ML INJ ONE (10:56)
[2022-01-10] MEDS ORDERED: SODIUM CHLORIDE 0.9% IRR 1,500 ML BOTTLE IR ONE (11:05)
--- NOTE | 2022-01-10 11:16 | Procedure Note ---
Date of procedure: 01/10/22 Pre-op diagnosis: menometrorrhagia, endometrial polyp Post-op diagnosis: same Procedure: Hysteroscopy, polypectomy and dilatation and curettage After risks, benefits and alternatives of procedure were discussed in detail, pt signed consents and was taken to the OR via stretcher. Time out done and pt given anesthesia, placed in dorsal lithotomy, prepped and draped in usual sterile fashion Bladder emptied with red rubber and urine sent for culture that was concentrated Time taken to find an appropriate size speculum since the one in the set was too small for this patient When speculum received from circulating nurse, same was inserted and cervix re-p repped with betadine with white secretions noted. Single tooth tecnaculum placed and serial cervical dilations done to accomodate hysteroscope which was gently advanced to the fundus with saline as fluid, the cavity was seen and above findings recorded Polyp forceps used to remove some of fluffiness see, with no distinct polyp noted; The hysteroscope was then removed and sharp curette used to get sample from all quadrants and and mostly to the right side where ostia was occluded. Specimen for endometrial curettings sent to lab and the single tooth tenaculum removed with bleeding noted to the left side and 0-vicryl suture with figure of 8 x1 with excellent effect and hemostasis achieved. The speculum was then removed and sponge, instrument and needle counts done and same wnl. Pt tolerated the procedure well, no complicationsa and she was extubated and taken to recovery room stable INTAKE and OUTPUT per anesthesia record EBL: minimal Findings: Normal shaped cavity, with right os occluded with fluffy material, no distinct polyp. Limited bimanual due to habitus Anesthesia: GETA Surgeon: ELLEN GORE Estimated blood loss: minimal Pathology: list (endometrial currettings with polypectomy tissue) Specimen disposition: to lab Condition: stable Disposition: same day
[2022-01-10 11:47] VITALS: BP 119/68
--- NOTE | 2022-01-10 14:10 | Post Anesthesia Evaluation ---
- Post Anesthesia Evaluation Patient Participated: Yes Airway Patent: Yes Stable Respiratory Function: Yes Nausea/Vomiting: No Temp > 96.8F: Yes Pain Manageable: Yes Adequeate Hydration: Yes Anesthesia Complications: No
--- NOTE | 2022-01-11 17:11 | Discharge Summary ---
Providers - Providers Date of Admission: 01/10/22 Date of discharge: 01/10/22 Attending physician: ELLEN GORE Primary care physician: [employer] Hospitalization Reason for admission: other (same day procedure for menometrorrhagia with endometrial poly) Procedure: other (Hysteroscopy, dilatation and curettagea and polypectomy) Discharge diagnosis: other (menometrorrhagia) Hospital course: Same day admission for hysteroscopy, dilatation and curettage and polypectomy without complication and pt discharged that same day. Condition at discharge: Good Disposition: 01 HOME / SELF CARE / HOMELESS Plan - Discharge Medications Prescriptions: Ibuprofen [Motrin] 800 mg PO Q8HR PRN 21 Days #40 tablet PRN Reason: Pain, Moderate (4-6) oxyCODONE /ACETAMINOPHEN [Percocet 5/325] 1 tab PO Q4HR PRN 21 Days #30 tab PRN Reason: Pain , Severe (7-10) - Provider Discharge Summary Activity: no sex for 6 weeks Diet: routine Additional instructions: [] Smoking cessation referral if applicable(refer to patient education folder for contact #) [] Refer to [facility] Booklet Call your doctor immediately for: * Fever > 100.5 * Heavy vaginal bleeding ( >1 pad per hour) * Severe persistent headache * Shortness of breath * Reddened, hot, painful area to leg or breast * Drainage or odor from incision. * Keep incision clean and dry at all times and follow doctor's instructions regarding bathing/showering - Follow up plan Follow up: PRIMARY CARE, [Primary Care Provider] - 7 Days Forms: Outpatient Surgery [facility]
== END 2022-01-10 12:40 | disposition home or self-care (01) ==
LOC: OR 06:26
PROVIDERS: ATTEND Obstetrics & Gynecology
DX: N92.1 Excessive and frequent menstruation with irregular cycle (principal); N84.0 Polyp of corpus uteri; F17.210 Nicotine dependence, cigarettes, uncomplicated; Z79.899 Other long term (current) drug therapy; Z98.890 Other specified postprocedural states; Z91.040 Latex allergy status; Z98.891 History of uterine scar from previous surgery; Z86.718 Personal history of other venous thrombosis and embolism; Z80.8 Family history of malignant neoplasm of other organs or systems; Z82.49 Family history of ischemic heart disease and other diseases of the circulatory system
CPT/HCPCS: 58558; 81025; 87086; 88305; J0690; J1100; J1170; J1885; J2250; J2405; J2704; J7120

== ENCOUNTER 2022-02-26 16:03 | Emergency (ER) | payer MEDICAID ==
[2022-02-26] MEDS ORDERED: oxyCODONE /ACETAMINOPHEN 5-325MG TAB PO ONE (19:34)
[2022-02-26] MEDS ORDERED: SULFAMETHOXAZOLE/TRIMETHOPRIM 800/160MG DS TAB PO ONE (19:34)
[2022-02-26] MEDS ORDERED: KETOROLAC 10 MG TAB PO ONE (19:34)
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
[2022-02-26 20:19] VITALS: BP 132/81
== END 2022-02-26 23:05 | disposition home or self-care (01) ==
LOC: ED 16:03
DX: L02.212 Cutaneous abscess of back [any part, except buttock and flank] (principal); F17.200 Nicotine dependence, unspecified, uncomplicated; Z98.890 Other specified postprocedural states; Z79.899 Other long term (current) drug therapy; Z91.040 Latex allergy status
CPT/HCPCS: 99282